=== PATIENT | female | born 1935 | race Two or more races ===

== ENCOUNTER 2019-03-03 13:45 | Emergency (ER) | payer OTHER ==
[~2019-03-03] VITALS: Ht 149.9 cm; Wt 47.6 kg
[2019-03-03] MEDS ORDERED: SYNTHROID88 MCG (14:35)
[2019-03-03] MEDS ORDERED: NORVASC2.5 M1 (14:36)
[2019-03-03] MEDS ORDERED: ARICEPT5 MG (14:36)
[2019-03-03] MEDS ORDERED: ZESTORETIC 10-1 EACH (14:36)
[2019-03-03] MEDS ORDERED: SINEMET 10-1001 EACH (14:36)
== END 2019-03-03 19:53 | disposition home or self-care (01) ==
LOC: ER 13:45
DX: S42.222A 2-part displaced fracture of surgical neck of left humerus, initial encounter for closed fracture (principal); S00.83XA Contusion of other part of head, initial encounter; S40.012A Contusion of left shoulder, initial encounter; W18.09XA Striking against other object with subsequent fall, initial encounter; Y93.89 Activity, other specified; Y92.017 Garden or yard in single-family (private) house as the place of occurrence of the external cause; Y99.8 Other external cause status

== ENCOUNTER 2019-03-06 06:56 | Day surgery (SDC) | payer OTHER ==
[~2019-03-06 06:56] MED LIST: ARICEPT5 MG; NORVASC2.5 M1; SINEMET 10-1001 EACH; SYNTHROID88 MCG; ZESTORETIC 10-1 EACH
[2019-03-06] MEDS ORDERED: PERCOCET 5-3251 EACH PO (13:51)
[2019-03-06] MEDS ORDERED: DUI500 PO (13:51)
[2019-03-06] MEDS ORDERED: ALEVE220 M1 PO (13:51)
== END 2019-03-06 09:00 | disposition home or self-care (01) ==
LOC: CIR.AMB 06:56
DX: S42.222A 2-part displaced fracture of surgical neck of left humerus, initial encounter for closed fracture (principal); M80.012A Age-related osteoporosis with current pathological fracture, left shoulder, initial encounter for fracture
CPT/HCPCS: 23616; 20902; C1776